=== PATIENT | female | born 1930 | race African-American/Black ===

== ENCOUNTER 2018-06-15 13:56 | Inpatient (IN) | payer MEDICARE ==
[2018-06-15 14:59] LABS: #Basophils 0.1 thou/uL (0.0-0.2); #Eosinphils 0.2 thou/uL (0.0-0.7); #Monocytes 0.5 thou/uL (0.11-0.59); #Neutrophils 7.4 thou/uL (1.40-6.50); %Basophils 0.7 % (0.0-1.0); %Eosinophils 2.2 % (0.0-10.0); %Lymphocytes 19.2 % (21.0-51.0); %Monocytes 5.3 % (0.0-10.0); %Neutrophils 72.6 % (42.0-75.0); Hemoglobin 13.3 g/dL (12.0-16.0); Mean Corpuscular HGB CONC 34.3 g/dL (32.0-36.0); Mean Corpuscular Hemoglobin 29.6 pg (27.0-31.0); Mean Corpuscular Volume 86.3 fL (78.0-98.0); Mean Platelet Volume 5.5 fL (7.4-10.4); Platelet Count 344 thou/uL (130-400); RBC Distribution Width 12.3 % (11.5-14.5); White Blood Cell (WBC) Count 10.2 thou/uL (4.8-10.8)
[2018-06-15 15:06] LABS: PTT 36.5 SEC (22.9-36.1); Prothrombin Time 13.7 SEC (12.0-14.7)
--- NOTE | 2018-06-15 15:12 | RAD ---
PORTABLE CHEST 1 VIEW: Date: 06/15/18 Time: 1435 hours HISTORY: Preoperative evaluation. Left hip fracture. FINDINGS: Comparison made with exam of 01/31/11. The heart size is enlarged. Scarring in the left lung base is again seen. The aorta is tortuous. No f ocal areas of consolidation, pneumothorax, carrol pulmonary edema, or pleural effusions are seen. IMPRESSION: No acute process. POS: OFF
--- NOTE | 2018-06-15 15:14 | RAD ---
LEFT HIP 2 VIEWS: Date: 06/15/18 HISTORY: Injury. FINDINGS/IMPRESSION: There is a displaced fracture of the left femoral neck. The visualized bony pelvis appears intact. POS: TPC
--- NOTE | 2018-06-15 15:14 | RAD ---
AP PELVIS: Date: 06/15/18 HISTORY: fall with injury to left hip FINDINGS: Film is rotated and suboptimal. There is a displaced rotated fracture involving the femoral neck on t he left. The bony pelvis appears intact as visualized. The right hip appears intact. IMPRESSION: Fracture left femoral neck. POS: TPC
[2018-06-15 15:20] LABS: ALT (SGPT) 13 U/L (8-55); AST (SGOT) 19 U/L (5-34); Albumin 3.8 g/dL (3.4-4.8); Alkaline Phosphatase 60 U/L (40-150); Anion Gap 14 mmol/L (10-20); BUN (Urea Nitrogen) 9 mg/dL (9.8-20.1); Bilirubin, Total 0.5 mg/dL (0.2-1.2); Calc. Creatinine Clearance 0 mL/min (70-130); Calcium 9.4 mg/dL (7.8-10.44); Carbon Dioxide 26 mmol/L (23-31); Chloride 91 mmol/L (98-107); Estimated GFR-MDRD Greater than 90; Globulin 3.3 g/dL (2.4-3.5); Glucose 142 mg/dL (83-110); Lipase 112 U/L (8-78); Potassium 3.7 mmol/L (3.5-5.1); Protein, Total 7.1 g/dL (6.0-8.3); Sodium 127 mmol/L (136-145)
[2018-06-15] MEDS ORDERED: Morphine 2 MG/ML SYRINGE ONE (15:42)
[2018-06-15] MEDS ORDERED: Ondansetron PF 4 MG/2 ML Vial ONE (15:43)
--- NOTE | 2018-06-15 15:50 | RAD ---
LEFT KNEE TWO VIEWS: HISTORY: An 87-year-old female with a history of trauma. Patient unable to bend knee. FINDINGS: There is severe bony demineralization. Minimal generalized degenerative change. No acute fracture o r overt joint effusion. IMPRESSION: Bony demineralization with some degenerative change without acute fracture or dislocation. POS: C
[2018-06-15] MEDS ORDERED: traMADol HCl 50 MG TAB PO PRN (17:01)
[2018-06-15] MEDS ORDERED: Morphine 4 MG/ML VIAL SLOW IVP PRN (17:02)
[2018-06-15] MEDS ORDERED: Ondansetron PF 4 MG/2 ML Vial IVP PRN (17:03)
[2018-06-15] MEDS ORDERED: Dextrose 5% in Water 1,000 ML IV PRN (17:06)
[2018-06-15] MEDS ORDERED: Dextrose 50% Abboject 50 ML SYRINGE SLOW IVP PRN (17:06)
[2018-06-15 17:47] LABS: Thyroid Stimulating Hormone 2.3378 uIU/mL (0.35-4.94)
[2018-06-15] MEDS: traMADol HCl 50 MG TAB PO SCH (20:25)
[2018-06-15] MEDS: Acetaminophen 500 MG TAB PO SCH (20:25)
[2018-06-15] MEDS: Senokot S 8.6-50 MG TAB PO SCH (20:25)
[2018-06-15] MEDS: Ketorolac Tromethamine 30 MG/ML VIAL IVP SCH (20:25)
[2018-06-15] MEDS: Sodium Chloride 0.9% 1,000 ML IV SCH (20:34)
--- NOTE | 2018-06-15 21:42 | CON ---
DATE OF CONSULTATION: 06/15/18 REASON FOR CONSULTATION: Left hip pain. HISTORY OF PRESENT ILLNESS: Ms. Marrero is an 87-year-old female status post fall. The patient is a household ambulator. The patient witnessed falls. She walks with a walker. She currently lives at home. Per report, the patient has complaints of left hip pain. Pain is rated at 4/10. She is lying on her side. Family is at bedside. The patient has difficulty verbalizing. PAST MEDICAL HISTORY: Includes hypertension and asthma. PAST SURGICAL HISTORY: Includes none per reports. ALLERGIES: PENICILLINS. MEDICATIONS: Unknown. SOCIAL HISTORY: The patient lives at home alone. She denies alcohol or drug use. She has no smoking history. The patient walks with ambulator. She is a household ambulator. REVIEW OF SYSTEMS: Noncontributory. PHYSICAL EXAMINATION: VITAL SIGNS: 153/71, 82, 19. Pain, 10/10. 100% O2 on oxygen. GENERAL: Alert female, to person and place. Resting comfortably in bed. Left hip pain, lying on her left side. The patient has pain with rotation of her left hip. She has palpable 1+ DP and PT pulses. She will flex and extend her toes. She has no skin changes on her left hip. No effusion of her knee. She has sensation intact L4 through S1 distribution to her left foot. DIAGNOSTIC DATA: The patient has radiographs hip and pelvis x-ray showing a left subcapital femoral neck fracture. IMPRESSION: 1. Status post fall. 2. Left hip fracture. 3. Hypertension. 4. A household ambulator. ASSESSMENT AND PLAN: The patient will be taken to the OR tomorrow for left hip hemiarthroplasty. She will receive preoperative antibiotics, she will receive TXA on-call the OR. The patient will have left hemiarthroplasty performed. She understands risks and benefits of the surgery include pain, scar, bleeding, infection, damage to vital structures, fracture need for further surgery, revision. Discussed the mortality associated with females of her age. She understands this. She understands she will require discharge to shelter afterwards. Job ID: [id number] [facility]
--- NOTE | 2018-06-15 22:23 | HP ---
HISTORY OF PRESENT ILLNESS: This is an 87-year-old female who was at home using her walker, was pushing her wheelchair when she had a mechanical fall. It was reported witness by the home health nurse. The patient immediately complained of left hip pain. The patient denies any loss of consciousness and denies hitting her head. The patient was taken to the ER and evaluated to have a left femoral neck fracture, which was displaced. We were called by Dr. Gramajo, ER physician for admission. The patient does live at home alone and has home health who checks on her frequently and family members who also check on her frequently. She reports that she was trying to get people's attention whenever she fell, unknown how long she was on the ground. PAST MEDICAL HISTORY: Asthma, hypertension, seasonal allergies. SOCIAL HISTORY: The patient lives at home alone with home health visits. Denies history of smoking, tobacco use or alcohol use. ALLERGIES: PENICILLIN. MEDICATIONS: Unavailable, the patient's family to obtain from [facility]. PAST SURGICAL HISTORY: Hysterectomy and hernia repair. REVIEW OF SYSTEMS: HEENT: Head is atraumatic. Denies nausea, vomiting, or visual changes. Denies dizziness. NECK: Denies neck pain. CARDIAC: No murmurs or palpitations. No edema. No dyspnea. RESPIRATORY: Reports chronic asthma with wheezing. GI: Normal appetite. Last intake was 8 o'clock this morning. GENITOURINARY: Denies frequency, hesitancy or dysuria. MUSCULOSKELETAL: Reports pain to the left hip. Uses a walker or wheelchair at home for ambulation. PHYSICAL EXAMINATION: VITAL SIGNS: Blood pressure 166/82, heart rate 70, respirations 20, temperature 98.4, and SpO2 of 100% on 2 L. HEENT: Head is atraumatic. NECK: Normal range of motion. No tracheal deviation. CARDIOVASCULAR: Regular rate and rhythm. No murmurs. RESPIRATORY: Chest is symmetrical. Normal respirations. The patient does have expiratory wheezing. ABDOMEN: Soft, nontender, with active bowel sounds. MUSCULOSKELETAL: Left lower extremity externally rotated. Positive pulses. Left extremity is also shortened. NEUROLOGIC: Cranial nerves intact. GCS 15. LABORATORY DATA: WBC is 10.2, red blood count 4.5, hemoglobin 13.3, hematocrit 38.8, platelets 344. PT 13.7, INR 1.0, PTT 36.5. Sodium 127, chloride 91, BUN 9, creatinine 0.64, glucose 142. Troponin 0.010. BNP 101.4. Lipase 112. DIAGNOSTIC DATA: Left hip x-ray; left femoral neck fracture, which is displaced. Pelvis appears intact. Chest x-ray; no acute process. Heart is slightly enlarged. ASSESSMENT: 1. Mechanical fall. 2. Left displaced femoral neck fracture. 3. Acute traumatic pain. 4. Hyponatremia. PLAN: 1. Consult Ortho. 2. Pain management. 3. Possible OR. We will keep the patient n.p.o. if that is planned for OR tomorrow. 4. We will place the patient on scheduled DuoNebs for her asthma history. We will consult PT, OT, and Case Management. 5. We will repeat lab work tomorrow. 6. We will place the patient on IV fluids. The patient has been discussed with the attending physician. Job ID: [id number]
[2018-06-15 23:29] VITALS: BMI 22.0
--- NOTE | 2018-06-16 02:09 | PRG ---
DATE OF SERVICE: 06/16/2018 SUBJECTIVE: Toma Marrero is an 87-year-old black female, who was admitted on 06/15/2018, for left femoral neck fracture. The patient fell, witnessed. She at baseline walks with a walker, lives at home. PAST MEDICAL HISTORY: Includes hypertension and asthma. She does not smoke. She denies any coronary artery disease. ALLERGIES: SHE IS ALLERGIC TO PENICILLIN. SHE IS SEEING DR. DRE KATZ AND PLAN IS FOR HIM TO PLAN ORIF OF HER LEFT HIP. I EXPECT SHE WILL NEED TO GO TO REHAB POSTOPERATIVELY. DISCHARGE PLANNING WILL BE NECESSARY. LABORATORY DATA: Sodium 127, potassium 3.7, BUN 9, and creatinine 0.64. CBC is normal. Coagulation studies normal. ASSESSMENT AND PLAN: Left femoral neck fracture. The patient is stable medically to proceed with open reduction and internal fixation. I agree with Selma Hogan's assessment. Job ID: [id number]
[2018-06-16] MEDS: Ketorolac Tromethamine 30 MG/ML VIAL IVP SCH ×4 (02:15→20:28)
[2018-06-16] MEDS: traMADol HCl 50 MG TAB PO SCH ×5 (02:16→20:27)
[2018-06-16] MEDS: Acetaminophen 500 MG TAB PO SCH ×6 (02:16→20:27)
[2018-06-16] MEDS ORDERED: CEFAZOLIN 2 GM/50 ML BAG ONE (07:51)
[2018-06-16] MEDS ORDERED: Tranexamic Acid 1,000 MG/10 ML VIAL ONE ×2 (07:51→11:36)
[2018-06-16] MEDS ORDERED: Sodium Chloride 0.9% 100 ML ONE (07:52)
[2018-06-16] MEDS ORDERED: Fentanyl 100 MCG/2 ML VIAL ONE (08:03)
[2018-06-16 08:09] LABS: #Lymphocytes 1.2 thou/uL (1.20-3.40); #Monocytes 0.5 thou/uL (0.11-0.59); #Neutrophils 10.2 thou/uL (1.40-6.50); %Basophils 0.3 % (0.0-1.0); %Eosinophils 0.2 % (0.0-10.0); %Lymphocytes 9.8 % (21.0-51.0); %Monocytes 4.4 % (0.0-10.0); %Neutrophils 85.3 % (42.0-75.0); Hemoglobin 12.1 g/dL (12.0-16.0); Mean Corpuscular HGB CONC 34.3 g/dL (32.0-36.0); Mean Corpuscular Hemoglobin 29.5 pg (27.0-31.0); Mean Corpuscular Volume 86.1 fL (78.0-98.0); Platelet Count 288 thou/uL (130-400); RBC Distribution Width 12.3 % (11.5-14.5); White Blood Cell (WBC) Count 11.9 thou/uL (4.8-10.8)
[2018-06-16 08:19] LABS: Anion Gap 10 mmol/L (10-20); BUN (Urea Nitrogen) 12 mg/dL (9.8-20.1); Calc. Creatinine Clearance 49 mL/min (70-130); Calcium 8.9 mg/dL (7.8-10.44); Carbon Dioxide 30 mmol/L (23-31); Chloride 95 mmol/L (98-107); Estimated GFR-MDRD Greater than 90; Glucose 89 mg/dL (83-110); Phosphorus 3.7 mg/dL (2.3-4.7); Potassium 3.9 mmol/L (3.5-5.1); Sodium 131 mmol/L (136-145)
[2018-06-16] MEDS: Sodium Chloride 0.9% 1,000 ML IV SCH ×2 (10:51→20:30)
[2018-06-16] MEDS ORDERED: Tranexamic Acid 1,000 MG in Sodium Chloride 0.9% 100 ML IVPB SCH (11:32)
--- NOTE | 2018-06-16 12:37 | RAD ---
2 VIEWS LEFT HIP: Date: 06/16/18 COMPARISON: 06/15/18. HISTORY: Evaluate left hip status post arthroplasty. FINDINGS: The previous study demonstrated a fracture at the base of the left femoral head. This examination dem onstrates a new left hip arthroplasty with no evidence for hardware failure. IMPRESSION: Interval left total hip arthroplasty. POS: REILLY
[2018-06-16] MEDS ORDERED: CEFAZOLIN/Water 2 GM/20 ML SYRINGE SLOW IVP SCH (12:49)
[2018-06-16] MEDS ORDERED: Ondansetron PF 4 MG/2 ML Vial ONE (14:41)
[2018-06-16] MEDS ORDERED: Lidocaine 1% PF 5 ML VIAL ONE (14:41)
[2018-06-16] MEDS ORDERED: ePHEDrine/0.9% NaCl/PF SYRINGE 50 mg/10 ml ONE (14:41)
[2018-06-16] MEDS ORDERED: PHENYLEPHRINE-NS 100 MCG/ML 10 ML SYRINGE ONE (14:41)
[2018-06-16] MEDS ORDERED: PROPOFOL 200 MG/20 ML VIAL ONE (14:41)
[2018-06-16] MEDS ORDERED: Glycopyrrolate 0.2 MG/ML 5 ML SYRINGE ONE (14:41)
[2018-06-16] MEDS: Senokot S 8.6-50 MG TAB PO SCH ×2 (15:41→20:27)
[2018-06-16] MEDS: Polyethylene Glycol 3350 17 GM Packet PO SCH (15:42)
[2018-06-16] MEDS: CEFAZOLIN 2 GM/50 ML-DEXTROSE 2 GM in Premix Bag 1 BAG IVPB SCH (18:22)
--- NOTE | 2018-06-16 19:55 | PRG ---
DATE OF SERVICE: 06/16/2018 SUBJECTIVE DATA: An 87-year-old female, status post ground level fall with displaced left femoral neck fracture. No overnight events. The patient's pain was well controlled. Remained n.p.o. after midnight. The patient had just returned from surgery. The patient is resting with eyes closed, in no distress. Opens eyes to voice and easily arousable. The patient voices no complaints at this time. OBJECTIVE: VITAL SIGNS: Temperature 98.2, heart rate 74, respirations 18, SpO2 of 98% on 2 L, and blood pressure 109/66. GENERAL: The patient resting with eyes closed, in no distress. RESPIRATORY: Respirations are symmetrical, even and unlabored. CARDIOVASCULAR: Regular rate and rhythm. MUSCULOSKELETAL: The patient moves all extremities. Distal pulses intact. LABORATORY DATA: WBCs 11.9, RBC 4.10, hemoglobin 12.1, hematocrit 35.3, and platelets 288. Sodium 131, chloride 95, BUN 12, and creatinine 0.68. Cortisol level 31.1. ASSESSMENT: 1. Status post mechanical fall. 2. Left displaced femoral neck fracture. 3. Acute traumatic pain. 4. Hyponatremia. PLAN: 1. Postop day zero ORIF of the left hip. 2. We will advance the patient's diet. 3. We will stop IV fluids. 4. We will work on placement with Case Management. 5. We will continue PT, OT. 6. This patient was discussed with the attending surgeon. Job ID: [id number]
[2018-06-17] MEDS: CEFAZOLIN 2 GM/50 ML-DEXTROSE 2 GM in Premix Bag 1 BAG IVPB SCH (01:20)
[2018-06-17] MEDS: Acetaminophen 500 MG TAB PO SCH ×4 (01:20→19:36)
[2018-06-17] MEDS: traMADol HCl 50 MG TAB PO SCH ×4 (01:21→19:40)
[2018-06-17] MEDS: Ketorolac Tromethamine 30 MG/ML VIAL IVP SCH ×3 (01:22→13:57)
[2018-06-17] MEDS: Sodium Chloride 0.9% 1,000 ML IV SCH ×2 (01:37→11:30)
[2018-06-17 06:45] LABS: Anion Gap 7 mmol/L (10-20); BUN (Urea Nitrogen) 13 mg/dL (9.8-20.1); Calc. Creatinine Clearance 52 mL/min (70-130); Calcium 8.1 mg/dL (7.8-10.44); Carbon Dioxide 28 mmol/L (23-31); Chloride 99 mmol/L (98-107); Estimated GFR-MDRD Greater than 90; Glucose 109 mg/dL (83-110); Magnesium 1.6 mg/dL (1.6-2.6); Phosphorus 2.7 mg/dL (2.3-4.7); Potassium 3.7 mmol/L (3.5-5.1); Sodium 130 mmol/L (136-145)
[2018-06-17 06:59] LABS: Band 3 % (5-11); Hemoglobin 9.3 g/dL (12.0-16.0); Lymphocytes 8 % (21-51); MDiff Complete? YES; Mean Corpuscular Hemoglobin 30.3 pg (27.0-31.0); Mean Corpuscular Volume 86.7 fL (78.0-98.0); Mean Platelet Volume 6.3 fL (7.4-10.4); Monocytes 4 % (0-10); Neutrophil 85 % (42-75); Platelet Count 225 thou/uL (130-400); RBC Distribution Width 12.2 % (11.5-14.5); Red Blood Cell (RBC) Count 3.07 mill/uL (4.20-5.40); White Blood Cell (WBC) Count 14.4 thou/uL (4.8-10.8)
[2018-06-17] MEDS: Polyethylene Glycol 3350 17 GM Packet PO SCH (08:19)
[2018-06-17] MEDS: Senokot S 8.6-50 MG TAB PO SCH ×2 (08:20→19:41)
--- NOTE | 2018-06-17 11:19 | OP ---
DATE OF PROCEDURE: 06/16/2018 PREOPERATIVE DIAGNOSIS: Left femoral neck fracture. POSTOPERATIVE DIAGNOSIS: Left femoral neck fracture. PROCEDURES PERFORMED: Left cemented femoral neck fracture with cerclage wires. JUTE BAG CLIPPER: Amish Taylor. ANESTHESIOLOGIST: Carson. ANESTHESIA: The patient received a general endotracheal intubation. ESTIMATED BLOOD LOSS: 200 mL. TOURNIQUET TIME: None. IMPLANTS: Cemented Accolade C, size 2 hip stem, a 45 mm prosthesis, -4 Endotrac sleeve, a 2 mm with Accolade spacer and simplex cement. ANTIBIOTICS: Ancef 2 g, TXA 1 g. COMPLICATIONS: None. HISTORY OF PRESENT ILLNESS: Ms. Marrero is an 87-year-old female, who presented after a left femoral neck fracture. I discussed the risks and benefits of left hemiarthroplasty that include pain, scar, bleeding, infection, damage to vital structures, decreased range of motion and strength, continued pain despite surgical intervention, failure of procedure, continued pain, need for further surgeries, loss of life and the patient understood the risks and benefits and elected to proceed. DESCRIPTION OF PROCEDURE: Time-out was performed designating the patient's left lower extremity as the operative site, based on site, consents, and markings. After time-out, the patient's upper extremity was prepped and draped in sterile fashion, placed in lateral position with bony prominences well padded in axillary roll. The patient's lateral incision down through skin and down to the IT band, split the IT bands down the gluteus. There was a tear of the gluteus medius and minimus with some residual fat infiltration. We cut down on to the gluteus medius and minimus. We came down to the capsule, T'd and excised the capsule, came up, cut our neck, removed our neck. We moved and removed the ball, size 2, a 45 mm head. We then moved back to the patient's hip. We started broaching rest with size 3 with our Press-Fit stem. As a result of crack that was noted posteriorly and given the patient's poor bone quality, I elected to convert to a cemented stem. I placed a cable to help to keep with any progression of the crack line we then broached up to 2 and the 3 trial, I felt like the 2 she had just the short neck was best. We elected for size 2, for which we increased her cement mantle. We cemented a size 2 into the patient's hip given short neck length and difficulty with reduction. We then placed a standard trial overall alignment position and difficulty with reduction. The patient was difficult to reduce and had very minimal shock even with 2. We then cemented the stem, trialed with a standard, which was too tight, had 0 shuck and a -[address] with the final implant in. We then washed. We closed with 2 Vicryl for the IT band, #2 3-0 Stratafix subcu and glue. The patient will be admitted back to hospital, received 24 hours antibiotics. The patient will be weightbearing as tolerated. She is followed inhouse by Trauma. The patient will receive preoperative antibiotics. The patient will require postoperative management in a [facility] facility. The patient's outlook is guarded, given her bone quality, age, and limited mobility. Job ID: [id number] [facility]
[2018-06-17 11:45] LABS: Bilirubin Negative (Negative); Blood, Urine Negative (Negative); Clarity CLEAR (Clear); Glucose, Urine (Dipstick) Negative (Negative); Leukocyte Negative (Negative); Nitrite Negative (Negative); Protein, Urine (Dipstick) Negative (Neg-Trace); Specific Gravity, Urine 1.021 (1.002-1.036); Urobilinogen 0.2 mg/dL (0.2-1.0)
[2018-06-17 11:58] LABS: Osmolality, Urine 386 mOsm/kg (300-900)
[2018-06-17 11:59] LABS: Sodium, Urine Less than 20 mmol/L (Not Available)
[2018-06-17] MEDS ORDERED: PROVENTIL INHALER 6.7 G (200 INHALATIONS) INH PRN (16:53)
[2018-06-17] MEDS ORDERED: Sodium Chloride 0.9% 500 ML IV SCH (17:30)
[2018-06-17] MEDS: Mometasone/Formoterol 120 PUFF INHALER INH SCH (19:11)
--- NOTE | 2018-06-17 20:58 | PRG ---
DATE OF SERVICE: 06/17/2018 SUBJECTIVE DATA: An 87-year-old female, status post ground level fall with displaced left femoral neck fracture. The patient has no overnight events and was able to rest comfortably with pain being well controlled. The patient is sitting up in the chair eating. Her only complaint is the patient has poor dentition and the diet that was ordered was not ground up enough. The patient with adequate urine output for her weight, currently output of 0.6 mL/hour. IV fluids, continue to infuse at this time. The patient with moderately low blood pressures throughout hospital stay. OBJECTIVE: VITAL SIGNS: Blood pressure 102/54 around 11 o'clock and 128/78 around 3 o'clock, temperature 98.2, pulse 91, respirations 16, SpO2 of 92% on room air. GENERAL: The patient is sitting up, in no distress, able to carry on a full conversation. HEENT: The patient has poor dentition and mildly dry mucous membranes. RESPIRATORY: Even, nonlabored. CHEST: Symmetrical. MUSCULOSKELETAL: Moves all extremities. Normal sensation. +2 pedal pulses bilateral. No pedal edema. NEUROLOGIC: GCS 3. No neuro deficits. LABORATORY DATA: WBC 14.4, RBC 3.07, hemoglobin 9.3, hematocrit 26.6, and platelets 225. Sodium 130, potassium 3.7, chloride 99, CO2 of 28, anion gap 7, BUN 13, creatinine 0.64, GFR 90, glucose 109, calcium 8.1, phosphorus 2.7, and magnesium 1.6. Urine, negative for nitrites, no wbc's. ASSESSMENT: 1. Status post mechanical fall. 2. Left displaced femoral neck fracture, postop day 1 open reduction and internal fixation. 3. Acute traumatic pain. 4. Hyponatremia. PLAN: Continue pain regimen. We will leave the patient on IV fluids overnight as she appears to be dry. We will also give the patient a 500 mL bolus of normal saline. We will hold patient's hydrochlorothiazide, and we will contact the patient's primary care physician as that could be the cause of her fall and her mildly hypotensive state. The patient also at risk for malnutrition due to poor dentition and patient's age. We will continue to monitor the patient's urine output. The patient was switched to p.o. pain medication. Plan for case management to help with rehab placement. The patient's diet consist of a mechanical soft so that she can eat, and we will supplement with MightyShakes. We will repeat labs in the morning. The plan was discussed with the attending surgeon Job ID: [id number]
[2018-06-17] MEDS: Ibuprofen 600 MG TAB PO SCH (22:34)
[2018-06-18] MEDS: Acetaminophen 500 MG TAB PO SCH ×4 (02:51→14:00)
[2018-06-18] MEDS: traMADol HCl 50 MG TAB PO SCH ×4 (02:51→14:01)
[2018-06-18] MEDS: Sodium Chloride 0.9% 1,000 ML IV SCH (03:29)
[2018-06-18] MEDS: Ibuprofen 600 MG TAB PO SCH ×2 (06:29→14:00)
[2018-06-18] MEDS: Mometasone/Formoterol 120 PUFF INHALER INH SCH (07:03)
--- NOTE | 2018-06-18 07:41 | PRG ---
DATE OF SERVICE: 06/17/2018 ADDENDUM: LABORATORY DATA: WBC 14.4, RBC 3.07, hemoglobin 9.3, hematocrit 26.6, and platelets 225. Sodium 130, potassium 3.7, chloride 99, CO2 of 28, anion gap 7, BUN 13, creatinine 0.64, GFR 90, glucose 109, calcium 8.1, phosphorus 2.7, and magnesium 1.6. Urine, negative for nitrites, no wbc's. The plan was discussed with the attending surgeon. Job ID: [id number]
[2018-06-18] MEDS ORDERED: Montelukast Sodium 10 mg Tablet PO SCH (09:00)
[2018-06-18] MEDS: Senokot S 8.6-50 MG TAB PO SCH (09:07)
[2018-06-18] MEDS: Polyethylene Glycol 3350 17 GM Packet PO SCH (09:07)
[2018-06-18 09:59] VITALS: TEMP 97.7
[2018-06-18 12:41] LABS: #Basophils 0.1 thou/uL (0.0-0.2); #Eosinphils 0.1 thou/uL (0.0-0.7); #Lymphocytes 1.2 thou/uL (1.20-3.40); #Monocytes 0.7 thou/uL (0.11-0.59); #Neutrophils 10.3 thou/uL (1.40-6.50); %Basophils 0.4 % (0.0-1.0); %Eosinophils 0.7 % (0.0-10.0); %Lymphocytes 10.1 % (21.0-51.0); %Monocytes 5.5 % (0.0-10.0); %Neutrophils 83.4 % (42.0-75.0); Mean Corpuscular HGB CONC 34.5 g/dL (32.0-36.0); Mean Corpuscular Hemoglobin 30.1 pg (27.0-31.0); Mean Corpuscular Volume 87.5 fL (78.0-98.0); Mean Platelet Volume 5.8 fL (7.4-10.4); Platelet Count 249 thou/uL (130-400); RBC Distribution Width 12.4 % (11.5-14.5); Red Blood Cell (RBC) Count 3.33 mill/uL (4.20-5.40); White Blood Cell (WBC) Count 12.4 thou/uL (4.8-10.8)
[2018-06-18 13:00] LABS: Anion Gap 9 mmol/L (10-20); BUN (Urea Nitrogen) 13 mg/dL (9.8-20.1); Calc. Creatinine Clearance 51 mL/min (70-130); Calcium 8.6 mg/dL (7.8-10.44); Carbon Dioxide 26 mmol/L (23-31); Chloride 98 mmol/L (98-107); Estimated GFR-MDRD Greater than 90; Glucose 104 mg/dL (83-110); Magnesium 1.8 mg/dL (1.6-2.6); Phosphorus 2.2 mg/dL (2.3-4.7); Potassium 4.1 mmol/L (3.5-5.1); Sodium 129 mmol/L (136-145)
[2018-06-18 13:39] VITALS: BP 124/73
--- NOTE | 2018-06-18 16:07 | DIS ---
DATE OF ADMISSION: 06/15/2018 DATE OF DISCHARGE: 06/18/2018 ADMISSION DIAGNOSES: 1. Status post ground level fall. 2. Left displaced femoral neck fracture. 3. Acute traumatic pain. 4. Hyponatremia. CONSULTATIONS: Orthopedics, Dr. Hendrickson. PROCEDURE: Left cemented femoral neck fracture with cerclage wires. HOSPITAL COURSE: In summary, the patient is an 87-year-old woman, who was at her [facility], pushing a wheelchair when she slipped and fell, landing on her hip. The patient was brought to the emergency department and underwent evaluation and examination, and was noted to have the above injuries. The patient was also noted to have hyponatremia. The patient will be admitted to the surgical floor. She would undergo her above procedure, which she tolerated well. The following day, she would begin working with Physical and Occupational Therapy and would be progressing at the time of discharge. The patient was progressing with Physical and Occupational Therapy. She was tolerating a diet. Her pain was controlled. She will follow up with Orthopedics in 2 weeks or sooner as needed. The patient had salt replacement added to her diet in addition to normal saline while she was here. The patient will need followup labs in 1 to 2 days or sooner as needed. The patient may follow up with the Trauma Clinic as needed. The patient should also follow up with her primary care provider to discuss possibly changing her blood pressure medicine/diuretic to avoid her hyponatremia. Job ID: [id number]
[2018-06-18] MEDS ORDERED: Sodium Chloride 1 GM TAB PO SCH (21:00)
== END 2018-06-18 14:40 | DRG 481 ==
LOC: ERS 13:56 → SURG A 19:12
PROVIDERS: ADMIT Specialist; ATTEND Specialist
PROC: 0QS704Z Reposition Left Upper Femur with Internal Fixation Device, Open Approach (ICD-10-PCS; principal; 2018-06-15)
DX: S72.002A Fracture of unspecified part of neck of left femur, initial encounter for closed fracture (principal); E87.1 Hypo-osmolality and hyponatremia; W19.XXXA Unspecified fall, initial encounter; I10 Essential (primary) hypertension; J45.909 Unspecified asthma, uncomplicated
CPT/HCPCS: 36415; 71045; 72170; 80048; 80053; 81003; 82533; 82550; 83690; 83735; 83880; 83930; 83935; 84100; 84300; 84443; 84484; 85025; 85610; 85730; 93005; 94640; 94664; 96361; 96374; 96375; C1713; G0390; G8978-GP-CK; G8979-GP-CI; G8987-GO-CK; G8988-GO-CI; J1885; J2001; J2270; J2405; J2704; J3010; J7050; J7620

== ENCOUNTER 2018-11-22 11:58 | Emergency (ER) | payer MEDICARE ==
[2018-11-22] MEDS ORDERED: Magnesium 2 GM/50 ML BAG (IN WATER) ONE (12:00)
[2018-11-22] MEDS ORDERED: EPINEPHrine 1 MG/10 ML Abboject SYRINGE ONE ×2 (14:00)
[2018-11-22] MEDS ORDERED: Magnesium 5 GM/10 ML Abboject SYRINGE ONE (14:00)
[2018-11-22] MEDS ORDERED: Sodium Bicarb 50 MEQ/50 ML Abboject 8.4% SYRINGE ONE (14:00)
[2018-11-22] MEDS ORDERED: Calcium Chloride 1 GM/10 ML Abboject SYRINGE ONE (14:00)
== END 2018-11-22 12:25 | disposition expired ==
LOC: ERS 11:58
DX: I46.9 Cardiac arrest, cause unspecified (principal)
CPT/HCPCS: 36680; 92950; 96374; 96375; J0171; J3475